=== PATIENT | female | born 1990 | race Caucasian/White ===

== ENCOUNTER 2017-05-15 06:50 | Inpatient (IN) | payer OTHER, MEDICAID ==
[2014-03-02 08:34] VITALS: BMI 45.3
[2017-05-15] MEDS ORDERED: Sodium Citrate/Citric Acid 15 ml Sol PO ONE (07:27)
[2017-05-15] MEDS ORDERED: Lactated Ringer's 1,000 ML IV SCH (07:30)
[2017-05-15 07:51] LABS: BASO # 0.1 K/uL (0.0-0.2); EOS # 0.1 K/uL (0.0-0.7); EOS % 0.9 % (0.0-4.0); HEMOGLOBIN 12.5 g/dL (11.0-16.0); LYMPH # 1.7 K/uL (1.0-4.3); MEAN CELL VOLUME 88.1 fL (81.0-99.0); MEAN CORPUSCULAR HEMOGLOBIN 30.1 pg (27.0-31.0); MEAN CORPUSCULAR HGB CONC 34.2 g/dL (33.0-37.0); MEAN PLATELET VOLUME 8.8 fL (7.2-11.7); MONO # 0.6 K/uL (0.0-0.8); MONO % 8.6 % (0.0-10.0); NEUT % 66.5 % (50.0-75.0); RBC 4.14 Mil/uL (3.80-5.20); RED CELL DISTRIBUTION WIDTH 15.7 % (11.5-14.5); WHITE BLOOD COUNT 7.4 K/uL (4.8-10.8)
[2017-05-15 08:14] LABS: SQUAMOUS EPITHIAL 11 /hpf (0-5); URINE BILIRUBIN NEGATIVE (NEGATIVE); URINE BLOOD NEGATIVE (NEGATIVE); URINE CLARITY Clear (Clear); URINE COLOR Yellow (YELLOW); URINE GLUCOSE (UA) NORMAL (Normal); URINE LEUKOCYTE ESTERASE NEG Leu/uL (Negative); URINE NITRATE NEGATIVE (NEGATIVE); URINE PROTEIN NEGATIVE (NEGATIVE); URINE UROBILINOGEN NORMAL mg/dL (0.2-1.0)
[2017-05-15 08:26] LABS: BLOOD UREA NITROGEN 9 mg/dL (7-17); CALCIUM 8.7 mg/dl (8.6-10.4); GFR AFRICAN-AMERICAN > 60; GFR NON-AFRICAN AMERICAN > 60
[2017-05-15] MEDS ORDERED: cefOXitin 2 GM in Sodium Chloride 0.9% 100 ML IVPB ONE (09:00)
[2017-05-15] MEDS ORDERED: Phenylephrine 10 mg/ml Inj ONE (09:22)
[2017-05-15] MEDS ORDERED: ePHEDrine 50 mg/ml Inj ONE (09:22)
[2017-05-15] MEDS ORDERED: Oxytocin 10 Units/ml Inj ONE (10:26)
--- NOTE | 2017-05-15 11:20 | PCM.SURG1 ---
Surgeon's Initial Post Op Note - Surgeon's Notes Surgeon: dr otpete Hvac Installation Technician: dr moncada Type of Anesthesia: Spinal Anesthesia Administered By: dr briggs Pre-Operative Diagnosis: 27 yr at 39.3weeks repeat c/s Operative Findings: see the op reort Post-Operative Diagnosis: same with adhesions Operation Performed: repeat cessarean section with lysis of adhesion Specimen/Specimens Removed: cord blood. placente Estimated Blood Loss: EBL {In ML}: 900 Blood Products Given: N/A Drains Used: No Drains Post-Op Condition: Good Date of Surgery/Procedure: 05/15/17 Time of Surgery/Procedure: 11:30
[2017-05-15] MEDS ORDERED: DiphenhydrAMINE 50 mg/ml Inj IVP PRN (11:26)
[2017-05-15] MEDS ORDERED: Morphine Monoject Barrel PCA 1mg/ml IV PRN (11:30)
--- NOTE | 2017-05-15 19:10 | OBDS ---
DELIVERY PERSONNEL Delivery Doctor: Sanford Ratliff MD/[place] Nurse: Sindy Mosquera OBT Strainer Mill Operator: Derrell Neal RN Anesthesiologist: Daniel Gonzalez MD MATERNAL INFORMATION Delivery Anesthesia: Spinal Medications in Delivery: see anesthesia record Estimated Blood Loss (ml): 900 Placenta Cultured: No Maternal Complications: None Other Maternal Complications: previous c/s, maternal obesity Provider Comments: baby deliverd in crystal. end clean o com LABOR SUMMARY EDC: 05/19/2017 00:00 No. Babies in Womb: 0 Attempted: No Labor Anesthesia: None LABOR INFORMATION Reason for Induction: Not Applicable Oxytocin: N/A Group B Beta Strep: Negative Antibiotics # of Doses: 1 Steroids Given: None Reason Steroids Not Administered: Not Applicable MEMBRANES Membranes Rupture Method: Artificial Rupture of Membranes: 05/15/2017 10:39 Length of Rupture (hrs): 0.00 Amniotic Fluid Color: Light Meconium Amniotic Fluid Amount: Moderate Amniotic Fluid Odor: Normal STAGES OF LABOR Stage 3 hrs: 0 Stage 3 min: 1 CSECTION DELIVERY Primary Indication: Repeat Elective CSection Urgency: Elective CSection Incidence: Repeat Labor: N/A Elective: Elective CSection Incision: Lower Uterine Transverse BABY A INFORMATION Infant Delivery Date/Time: 05/15/2017 10:39 Method of Delivery: Born in Route : No : N/A Forceps: N/A Vacuum Extraction: N/A Shoulder Dystocia : No SHOULDER DYSTOCIA BABY A Delivery Date/Time: 05/15/2017 10:39 PRESENTATION/POSITION BABY A Presentation: Cephalic Cephalic Presentation: Vertex Breech Presentation: N/A PLACENTA INFORMATION BABY A Placenta Delivery Time : 05/15/2017 10:40 Placenta Method of Delivery: Manual Removal Placenta Status: Delivered SCORES BABY A Heart Rate 1 min: >100 bpm Resp Effort 1 min: Good Cry Reflex Irritability 1 min: Cough or Sneeze or Pulls Away Muscle Tone 1 min: Active Motion Color 1 min: Body [place], Extremities Blue Resuscitation Effort 1 min: N/A SCORE 1 MIN: 9 Heart Rate 5 min: >100 bpm Resp Effort 5 min: Good Cry Reflex Irritability 5 min: Cough or Sneeze or Pulls Away Muscle Tone 5 min: Active Motion Color 5 min: Body [place], Extremities Blue Resuscitation Effort 5 min: N/A SCORE 5 MIN: 9 INFANT INFORMATION BABY A Gestational Age at Delivery: 39.3 Gestational Status: Term Outcome : Liveborn Condition : Stable Infant Sex: Female IDENTIFICATION/MEDS BABY A ID Band Number: [id number] ID Band Location: Right Leg; Left Leg Sensor Applied: Yes Sensor Number: [id number] Sensor Location : Cord Clamp WEIGHT/LENGTH BABY A Birthweight (gms): 3430 Infant Weight (lb): 7 Weight (oz): 9 Length Inches: 20.00 Infant Length cms: 50.8 CORD INFORMATION BABY A No. Cord Vessels: 3 Nuchal Cord : one loose body Infant Cord pH Baby Venous: 7.37 Cord Blood Taken: Yes Infant Suction: Mouth
--- NOTE | 2017-05-15 22:25 | OP ---
PROCEDURE DATE: PREOPERATIVE DIAGNOSIS: A 27-year-old 2, para 1 at 39 weeks and 3 days with scheduled repeat section. POSTOPERATIVE DIAGNOSES: A 27-year-old 2, para 1 at 39 weeks and 3 days with scheduled repeat section with adhesions. PROCEDURE: Repeat section and lysis of adhesion. SURGEON: Sanford Ratliff MD. WHITE SUGAR SYRUP OPERATOR: Julian Blanco MD, who was present throughout the procedure with retraction and pushing at the time of the delivery, helping with the procedure. TYPE OF ANESTHESIA: Spinal. ANESTHESIA ADMINISTERED BY: Dr. Gonzalez. COMPLICATIONS: None. ESTIMATED BLOOD LOSS: 900 mL. DESCRIPTION OF PROCEDURE: After informed consent was obtained, the patient was brought to the operating room, placed on the table, where spinal anesthesia was given. At the site of the previous skin incision, an incision was made with a knife, the subcutaneous cut with a Bovie. The fascia was excised it was cut on both the sides using curved Dumont scissors. Then, the rectus muscle was lifted up with 2 Allis scissors which was cut and there was found to be an adhesion coming from the anterior wall of the uterus to the peritoneum. The adhesion was taken out with the 2 Kellys. It was cut with the Bovie and there was another adhesion coming on the peritoneum, which was cut using the Kristina too. Then, the bladder blade was placed. Bladder flap was created. Then, the lower uterine segment incision was made with a knife, it was extended using Bovie and curved Dumont scissors. Baby was delivered in a NAKITA position, cord was clamped and cut, but there was a cord around the baby, there was meconium, suction was done and the baby was handed to the awaiting consulting manager. Cord gas was taken. Cord blood was taken. Placenta delivered manually and sent to the pathology. Uterus was exteriorized and cleared of all clots and debris. Uterine incision was closed using #1 Vicryl in interlocking fashion, second layer was closed with the same stitch. A lot of irrigation was done. Both the tubes and ovaries looked normal. Uterus was returned back to abdominal cavity. Cul-de-sac was cleared of all the clots and debris. Incision looked better and hemostatic. Peritoneum was closed using 2-0 Vicryl in running interlocking fashion. The muscle was closed using 2-0 Vicryl in running interlocking fashion. Fascia was closed using 1 Vicryl in running interlocking fashion. Subcutaneous . Skin was closed using dixie. The patient tolerated the procedure well. Lap, sponge, and instrument counts were correct x2. Sanford Ratliff MD
[2017-05-16] MEDS: Oxycodone/Acetaminophen 5/325 mg Tab PO PRN ×5 (05:09→23:38)
[2017-05-16 08:34] LABS: HEMOGLOBIN 11.9 g/dL (11.0-16.0); MEAN CELL VOLUME 88.6 fL (81.0-99.0); MEAN CORPUSCULAR HEMOGLOBIN 30.7 pg (27.0-31.0); MEAN CORPUSCULAR HGB CONC 34.7 g/dL (33.0-37.0); MEAN PLATELET VOLUME 8.5 fL (7.2-11.7); RBC 3.89 Mil/uL (3.80-5.20); WHITE BLOOD COUNT 8.7 K/uL (4.8-10.8)
[2017-05-17] MEDS: Oxycodone/Acetaminophen 5/325 mg Tab PO PRN ×4 (04:38→19:22)
[2017-05-17 16:12] VITALS: RESP 20
--- NOTE | 2017-05-17 16:52 | OBPPN ---
Datetime: 05/17/2017 08:40 PP Pain Prov: Within normal limits PP Nausea Prov: Denies PP Flatus Prov: No PP BM Prov: No PP Breasts Prov: Normal PP Heart Prov: Normal PP Lungs Prov: Normal PP Abdomen/Uterus Prov: Normal PP Lochia Prov: Normal PP Vulva/Perineum Prov: Normal PP CVA Tenderness Prov: Normal PP Extremities Prov: Normal PP Impression Prov: Normal progression PP Plan Prov: Continue present management PP Progress Note Prov: 27 year old s/p c-sxn with lysis of adhesions post operative day 2 wh o is both breast and bottle feeding. Patient does not have nausea, vomiting or diarrhea, she is ambu lating well, and her pain level is controlled with 6/10 going to 0/10 with pain medication (motrin an d percocet). Patient has mild lochia with 1-2 pads. She is urinating without problems but has not y et passed a bowel movement or flatus. Patient is tolerating diet well. Patient's vital signs are stable now, but she did have a fever overnight. Patient has Regular rat e and rhythm, is clear to auscultation bilaterally, and her fundus is 2 fingers below the umbilicus t o the left. Patient encouraged to ambulate more frequently to move her bowels. Patient encouraged to hydrate to maintain temperature. (Annotations: Data stored by CPN on behalf of user) Vital Signs Provider PP: Reviewed; Within Normal Limits
[2017-05-18] MEDS: Oxycodone/Acetaminophen 5/325 mg Tab PO PRN (04:05)
[2017-05-18 08:41] VITALS: BP 125/79; PULSE 94; TEMP 97.6; O2SAT 99
--- NOTE | 2017-05-18 10:34 | OBPPN ---
Datetime: 05/18/2017 10:29 PP Pain Prov: Within normal limits PP Nausea Prov: Denies PP Flatus Prov: Yes PP Breasts Prov: Normal PP Heart Prov: Normal PP Lungs Prov: Normal PP Abdomen/Uterus Prov: Normal PP Lochia Prov: Normal PP Vulva/Perineum Prov: Normal PP CVA Tenderness Prov: Normal PP Extremities Prov: Normal PP C/S Incision Prov: Normal PP Comments Phys Exam Prov: Abd: Soft, NT, BS- present UT- Firm Incision: Clean and dry PP Impression Prov: Normal progression PP Plan Prov: Discharge PP Impression Other Prov: S/P Section PP Progress Note Prov: S/P Section, POD #3 Clinically Stable. Plan: D/c home F/U with [facility] Clinic for wound care. Vital Signs Provider PP: Reviewed
--- NOTE | 2017-05-18 10:36 | OBDCSUM ---
Datetime: 05/18/2017 08:30 Discharged to, Provider: Home Follow up at, Provider: keith Disch Instr Activity: Normal activity; May Shower Disch Instr Diet: Regular Discharge Diet restrict Prov: none Discharge Instructions, Provider: Routine instructions given Discharge Diagnosis, Provider: Term Delivered Discharge Time: 05/18/2017 11:00 Follow up in weeks, Provider: one week Disch Referrals: None Contraception discussed, Prov: Yes Disch Activity Restrictions: No exercising; No lifting; No driving; Minimize walking; Minimize stair -climbing; No sexual activity; Nothing in vagina - [place], tampons, douche Discharge Comment, Provider: S/P Repeat Section,, Clinically Stable Discharge Diagnosis Prov Other: S/P Repeat Section,, Clinically Stable
--- NOTE | 2017-05-18 10:38 | OBPPN ---
Datetime: 05/16/2017 10:35 PP Pain Prov: Within normal limits PP Nausea Prov: Denies PP Flatus Prov: Yes PP Breasts Prov: Normal PP Heart Prov: Normal PP Lungs Prov: Normal PP Abdomen/Uterus Prov: Normal PP Lochia Prov: Normal PP Vulva/Perineum Prov: Normal PP CVA Tenderness Prov: Normal PP Extremities Prov: Normal PP Comments Phys Exam Prov: Abd: Soft, NT, BS- present UT- Firm Incision: Clean and dry PP Impression Prov: Normal progression PP Plan Prov: Continue present management PP Progress Note Prov: S/P Section, POD #1 Clinically Stable. Plan: Continue care. Vital Signs Provider PP: Reviewed
== END 2017-05-18 14:40 | disposition home or self-care (01) | DRG 765 ==
LOC: C.4D 06:50 → C.4M 15:00
PROVIDERS: ADMIT Obstetrics & Gynecology; ATTEND Obstetrics & Gynecology
PROC: 10D00Z1 Extraction of Products of Conception, Low, Open Approach (ICD-10-PCS; principal; 2017-05-15)
DX: O34.211 Maternal care for low transverse scar from previous cesarean delivery (principal); O86.4 Pyrexia of unknown origin following delivery; E66.9 Obesity, unspecified; Z37.0 Single live birth; Z3A.39 39 weeks gestation of pregnancy; O99.89 Other specified diseases and conditions complicating pregnancy, childbirth and the puerperium; O69.81X0 Labor and delivery complicated by cord around neck, without compression, not applicable or unspecified; O99.210 Obesity complicating pregnancy, unspecified trimester